=== PATIENT | male | born 1970 | race Two or more races ===

== ENCOUNTER 2020-03-18 12:42 | Emergency (ER) | payer OTHER ==
[~2020-03-18] VITALS: Ht 167.6 cm; Wt 81.6 kg
[2020-03-18] MEDS ORDERED: ATORVASTATIN CA10 MG (12:51)
[2020-03-18] MEDS ORDERED: VALSARTAN80 MG (12:51)
[2020-03-18] MEDS ORDERED: VALSARTAN40 MG (12:52)
== END 2020-03-19 13:06 | disposition home or self-care (01) ==
LOC: ER 12:42
DX: K85.90 Acute pancreatitis without necrosis or infection, unspecified (principal); U07.1 COVID-19